=== PATIENT | male | born 1990 | race African-American/Black ===

== ENCOUNTER 2020-09-23 09:15 | Emergency (ER) | payer MEDICAID ==
[~2020-09-23] VITALS: Ht 172.7 cm; Wt 87.0 kg
[2020-09-23] MEDS ORDERED: IBUPROFEN 600MG TABLET PO STA (10:07)
[2020-09-23 10:58] VITALS: BP 125/73
== END 2020-09-23 11:01 | disposition home or self-care (01) ==
LOC: ER 09:29
DX: S20.229A Contusion of unspecified back wall of thorax, initial encounter (principal); M54.2 Cervicalgia; W20.1XXA Struck by object due to collapse of building, initial encounter; Y93.9 Activity, unspecified; Y92.9 Unspecified place or not applicable
CPT/HCPCS: 99283